=== PATIENT | male | born 1935 | race Caucasian/White ===

== ENCOUNTER → 2016-11-05 | Day surgery (SDC) | payer OTHER ==
[2016-10-10 10:24] VITALS: Ht 167.6 cm; Wt 100.0 kg
[~2016-11-05] VITALS: Ht 167.6 cm; Wt 100.0 kg
[~2016-11-05] MED LIST: 500ML BSS 0.3ML EPI 1:1000PF IRRIG ONE; ACETAMINOPHEN 325 MG TAB PO PRN; AMVISC PLUS 0.8ML SYRINGE INT OCU ONE; ASCO10003 PO; ASPCH81X PO; ATROPINE SULFATE 0.1 MG/ML 5ML SYR IV PRN; B-COTAB18 PO; BSS FLUSH ONE; CALC500T68 PO; CETI10TA84 PO; EpHEDrine SULFATE INJ 50 MG/ML AMP IV PRN; EpINEphrine INJ 1MG/ML AMP 1 MG/ML AMP ONE; FENO145T26 PO; FINA5TAB PO; FURO-85 PO; INSDGIPEN SC; LACTATED RINGER'S 1000ML 1,000 ML IV SCH; LIDOCAINE 3.5% OPH GEL PER APPLICATION CHARGE ONE; LIDOCAINE HCL 1% MPF 2 ML VIAL ONE; LINA1TAB PO; LISI2.5T5 PO; MCR5 PO; METO25TA3 PO; MIDAZOLAM HCL 1 MG/ML 2ML VIAL ONE; MONT1TAB3 PO; MULT-190 PO; MULT-845 PO; OCUCOAT 1 ML SOLN IO ONE; OMEP40CA41 PO; POVIDONE-IODINE OP SOLN 30 ML BTL ONE; PROPARACAINE 0.5% OP SOLN PER DROP CHARGE OPL SCH; SERT50TA PO; SIMV20TA2 PO; TAMS0.4C38 PO; TOBRAMYCIN/DEXAMETHASONE OPH OINT PER APPLN CHARGE ONE; WARF5TAB7 PO; WARF7.5T4 PO
[2016-11-05] MEDS: PHENYLEPHRINE HCL 2.5% OP SOLN PER DROP CHARGE OPL SCH ×2 (06:56→07:02)
[2016-11-05] MEDS: TROPICAMIDE 1% OP SOLN PER DROP CHARGE OPL SCH ×2 (06:57→07:03)
[2016-11-05] MEDS: CYCLOPENTOLATE HCL 1% OP SOLN PER DROP CHARGE OPL SCH ×2 (06:58→07:03)
[2016-11-05] MEDS: KETOROLAC 0.5% OP SOLN PER DROP CHARGE OPL SCH ×2 (06:59→07:04)
[2016-11-05] MEDS: GATIFLOXACIN OP SOLN PER DROP CHARGE OPL SCH ×2 (07:00→07:10)
--- NOTE | 2016-11-05 07:29 | History & Physical Bridge - [place] ---
H&P Re-Evaluation Bridge Note: I have examined the patient, reviewed the History & Physical and in the interval since the performance of the History & Physical I have noted the following changes of clinical significance: No changes noted
--- NOTE | 2016-11-05 08:14 | Discharge Instructions-SurgCtr ---
Discharge Instructions Date of Service November 05, 2016. Visit Reason for Visit: Cataract Left Eye Discharge Discharge Diagnosis / Problem: cataract Discharge Goals Goal(s): Improve function Activity Recommendations Activity Limitations: per Instructions/Follow-up section Anesthesia . Post Anesthesia Instructions: If you have had General Anesthesia or IV Sedation: * Do not drive today. * Resume driving when surgeon permits. * Do not make important decisions or sign legal documents today. * Call surgeon for: 1. Temperature elevations greater than 101 degrees F. 2. Uncontrollable pain. 3. Excessive bleeding. 4. Persistent nausea and vomiting. 5. Medication intolerance (nausea, vomiting or rash). * For nausea and vomiting use only clear liquids such as: tea, soda, bouillon until nausea subsides, then gradually increase diet as tolerated. * If you have any concerns or questions, call your surgeon's office. If physician is unavailable and it is an emergency, call 911 or go to the nearest emergency room. . Instructions / Follow-Up Instructions / Follow-Up ACTIVITY RECOMMENDATIONS: * No strenuous lifting, jogging or running for 4 days * No swimming or yard work for 1 week. * Limited bending is permitted, such as putting on shoes. RETURN TO SCHOOL/WORK: No work until seen by physician in office. MEDICATIONS: Resume previous medications unless instructed otherwise by your surgeon. This includes eye drops for glaucoma. Zymaxid/Gatifloxacin (muñoz cap) - one drop every 2 hours until bedtime Nevanac/Ilevro/Prolensa/Ketorolac (holguin cap) - one drop every 4 hours until bedtime Prednisolone (white/pink cap, SHAKE WELL) - one drop every 2 hours until bedtime Starting tomorrow - all 3 drops every 4 hours until seen in the office Optive drops - as needed for discomfort SPECIAL CARE INSTRUCTIONS: * Wear eyeshield when sleeping, for four nights. * You may wear your own glasses or sunglasses while awake. * You may read or watch TV * You may shower and wash your face, but be gentle around the eye and pat dry. * Blurry vision and mild irritation are normal. * Call office if pain is more severe or vision becomes dark at . FOLLOW UP VISIT: Follow-up with Dr Bourgeois tomorrow. Diet Recommendations Home Diet: resume previous diet Procedures Procedures Performed: Left Eye Cataract Phacoemulsification With Intraocular Lens Implant Pending Studies Studies pending at discharge: no Medical Emergencies . Who to Call and When: Medical Emergencies: If at any time you feel your situation is an emergency, please call 911 immediately. . Non-Emergent Contact Non-Emergency issues call your: Tetryl Nitrator Operator . . "Provider Documentation" section prepared by Shantanu Bourgeois. .
--- NOTE | 2016-11-05 08:15 | [facility] Operative Report ---
Operative Report Date of Service November 05, 2016. Operative Report 1. PREOPERATIVE DIAGNOSIS: Cataract of the left eye. 2. POSTOPERATIVE DIAGNOSIS: Same. 3. PROCEDURE: Phacoemulsification with intraocular lens implantation of the left eye. SURGEON: Dr. Shantanu Bourgeois. ANESTHESIA: Topical Lidocaine gel, 1% Non- Preserved intracameral Lidocaine, and monitored intravenous sedation. INDICATIONS FOR THE PROCEDURE: The patient is a 81 - year-old male with a history of cataract of the left eye causing significant visual impairment. The details of the proposed procedure were explained to the patient who asked appropriate questions and following discussion of all risks, benefits and alternatives agreed to have the procedure done. 4. OPERATION AND FINDINGS: DESCRIPTION OF PROCEDURE: After informed consent was obtained, the patient was brought to the Operating Room at the [facility]. The patient was placed in a supine position and then the left eye was prepped and draped in the usual sterile fashion for intraocular surgery. A drop of topical Lidocaine gel was placed in the operative eye. A wire lid speculum was then placed in the fornices. A corneal paracentesis was then created temporally. The Non-Preserved Lidocaine was then instilled into the anterior chamber. The anterior chamber was then pressurized with viscoelastic. A 2.0 mm clear corneal incision was then created temporally. A cystotome was inserted into the anterior chamber and used to create a tear in the anterior lens capsule. This capsular tear was then used to create a small flap and the flap was dragged in a counterclockwise direction in order to create a continuous curvilinear capsulorrhexis. Hydrodissection was accomplished with balanced salt solution. Phacoemulsification of the lens nucleus was then performed in a standard [id number]-ush-[id number] technique. The phaco time was 29 seconds with an average power of 10 %. The remaining cortical material was removed using irrigation aspiration. The capsular bag was then filled with viscoelastic. A Bausch & Lomb MI60L +22.0 diopters lens was then loaded into the injector and injected into the capsular bag. The remaining viscoelastic was removed with the irrigation aspiration handpiece. The wound was hydrated and then checked and found to be watertight. The intraocular pressure was checked and found to be adequate. The wire lid speculum was removed and the patient's face was cleaned and dried. TobraDex ointment was placed in the inferior fornix. The patient was discharged to the Recovery Room having tolerated the procedure well. There were no complications. The patient will be seen tomorrow in the office for follow-up. I attest to the content of the Intraoperative Record and any orders documented therein. Any exceptions are noted below.
[2016-11-05 08:16] VITALS: TEMP 37.1
--- NOTE | 2016-11-05 08:27 | Anesthesia Progress Nt - [facility] ---
Anesthesia Post Op Note Date & Time November 05, 2016 at 08:27 Vital Signs Pain Intensity: 0 Vital Signs Past 12 Hours Date Time Temp Pulse Resp B/P Pulse Ox O2 Delivery O2 Flow Rate FiO2 11/05/16 06:47 36.4 61 16 110/69 95 Room Air Notes Mental Status: alert / awake / arousable, participated in evaluation Pt Amnestic to Procedure: Yes Nausea / Vomiting: adequately controlled Pain: adequately controlled Airway Patency, RR, SpO2: stable & adequate BP & HR: stable & adequate Hydration State: stable & adequate Anesthetic Complications: no major complications apparent
[2016-11-05 08:32] VITALS: BP 125/79; PULSE 63; O2SAT 94
== END | disposition home or self-care (01) ==
LOC: X.SURG 06:26
PROVIDERS: ATTEND Ophthalmology
DX: H26.9 Unspecified cataract (principal); J44.9 Chronic obstructive pulmonary disease, unspecified; E11.9 Type 2 diabetes mellitus without complications; C91.11 Chronic lymphocytic leukemia of B-cell type in remission; I48.0 Paroxysmal atrial fibrillation; N18.3 Chronic kidney disease, stage 3 (moderate); I12.9 Hypertensive chronic kidney disease with stage 1 through stage 4 chronic kidney disease, or unspecified chronic kidney disease; I50.22 Chronic systolic (congestive) heart failure; N40.0 Benign prostatic hyperplasia without lower urinary tract symptoms; F32.9 Major depressive disorder, single episode, unspecified; E78.2 Mixed hyperlipidemia; Z85.828 Personal history of other malignant neoplasm of skin; Z79.82 Long term (current) use of aspirin; Z79.01 Long term (current) use of anticoagulants

== ENCOUNTER → 2016-11-26 | Day surgery (SDC) | payer OTHER ==
[2016-11-08 08:44] VITALS: Ht 167.6 cm; Wt 100.0 kg
[~2016-11-26] VITALS: Ht 167.6 cm; Wt 100.0 kg
[~2016-11-26] MED LIST changes: +FENTANYL CITRATE INJ 50 MCG/1 ML 2 ML VIAL IV PRN; -LACTATED RINGER'S 1000ML 1,000 ML IV SCH; +LACTATED RINGER'S 1000ML 500 ML IV SCH; +MIX: 4ML BSS 1ML EPI 1:1000 PF INSTIL ONE; -PROPARACAINE 0.5% OP SOLN PER DROP CHARGE OPL SCH; +PROPARACAINE 0.5% OP SOLN PER DROP CHARGE OPR SCH
[2016-11-26] MEDS: PHENYLEPHRINE HCL 2.5% OP SOLN PER DROP CHARGE OPR SCH ×2 (07:53→08:00)
[2016-11-26] MEDS: TROPICAMIDE 1% OP SOLN PER DROP CHARGE OPR SCH ×2 (07:54→08:01)
[2016-11-26] MEDS: CYCLOPENTOLATE HCL 1% OP SOLN PER DROP CHARGE OPR SCH ×2 (07:55→08:03)
[2016-11-26] MEDS: KETOROLAC 0.5% OP SOLN PER DROP CHARGE OPR SCH ×2 (07:56→08:04)
[2016-11-26] MEDS: GATIFLOXACIN OP SOLN PER DROP CHARGE OPR SCH ×2 (07:57→08:08)
--- NOTE | 2016-11-26 08:56 | Discharge Instructions-SurgCtr ---
Discharge Instructions Date of Service November 26, 2016. Visit Reason for Visit: Cataract Right Eye Discharge Discharge Diagnosis / Problem: cataract Discharge Goals Goal(s): Improve function Activity Recommendations Activity Limitations: per Instructions/Follow-up section Anesthesia . Post Anesthesia Instructions: If you have had General Anesthesia or IV Sedation: * Do not drive today. * Resume driving when surgeon permits. * Do not make important decisions or sign legal documents today. * Call surgeon for: 1. Temperature elevations greater than 101 degrees F. 2. Uncontrollable pain. 3. Excessive bleeding. 4. Persistent nausea and vomiting. 5. Medication intolerance (nausea, vomiting or rash). * For nausea and vomiting use only clear liquids such as: tea, soda, bouillon until nausea subsides, then gradually increase diet as tolerated. * If you have any concerns or questions, call your surgeon's office. If physician is unavailable and it is an emergency, call 911 or go to the nearest emergency room. . Instructions / Follow-Up Instructions / Follow-Up ACTIVITY RECOMMENDATIONS: * No strenuous lifting, jogging or running for 4 days * No swimming or yard work for 1 week. * Limited bending is permitted, such as putting on shoes. RETURN TO SCHOOL/WORK: No work until seen by physician in office. MEDICATIONS: Resume previous medications unless instructed otherwise by your surgeon. This includes eye drops for glaucoma. Zymaxid/Gatifloxacin (muñoz cap) - one drop every 2 hours until bedtime Nevanac/Ilevro/Prolensa/Ketorolac (holguin cap) - one drop every 4 hours until bedtime Prednisolone (white/pink cap, SHAKE WELL) - one drop every 2 hours until bedtime Starting tomorrow - all 3 drops every 4 hours until seen in the office Optive drops - as needed for discomfort SPECIAL CARE INSTRUCTIONS: * Wear eyeshield when sleeping, for four nights. * You may wear your own glasses or sunglasses while awake. * You may read or watch TV * You may shower and wash your face, but be gentle around the eye and pat dry. * Blurry vision and mild irritation are normal. * Call office if pain is more severe or vision becomes dark at . FOLLOW UP VISIT: Follow-up with Dr Bourgeois tomorrow. Diet Recommendations Home Diet: resume previous diet Procedures Procedures Performed: Right Cataract Phacoemulsification With Intraocular Lens Implant Pending Studies Studies pending at discharge: no Medical Emergencies . Who to Call and When: Medical Emergencies: If at any time you feel your situation is an emergency, please call 911 immediately. . Non-Emergent Contact Non-Emergency issues call your: Industrial Recruiter . . "Provider Documentation" section prepared by Shantanu Bourgeois. .
[2016-11-26 08:57] VITALS: TEMP 36.7
--- NOTE | 2016-11-26 08:57 | [facility] Operative Report ---
Operative Report Date of Service November 26, 2016. Operative Report 1. PREOPERATIVE DIAGNOSIS: Cataract of the right eye. 2. POSTOPERATIVE DIAGNOSIS: Same. 3. PROCEDURE: Phacoemulsification with intraocular lens implantation of the right eye. SURGEON: Dr. Shantanu Bourgeois. ANESTHESIA: Topical Lidocaine gel, 1% Non- Preserved intracameral Lidocaine, and monitored intravenous sedation. INDICATIONS FOR THE PROCEDURE: The patient is a 81 - year-old male with a history of cataract of the right eye causing significant visual impairment. The details of the proposed procedure were explained to the patient who asked appropriate questions and following discussion of all risks, benefits and alternatives agreed to have the procedure done. The patient had a know history of taking of flomax. 4. OPERATION AND FINDINGS: DESCRIPTION OF PROCEDURE: After informed consent was obtained, the patient was brought to the Operating Room at the [facility]. The patient was placed in a supine position and then the right eye was prepped and draped in the usual sterile fashion for intraocular surgery. A drop of topical Lidocaine gel was placed in the operative eye. A wire lid speculum was then placed in the fornices. A corneal paracentesis was then created temporally. The Non-Preserved Lidocaine was then instilled into the anterior chamber. Epinephrine with a 1:4 dilution was instilled into the anterior chamber. The anterior chamber was then pressurized with viscoelastic. A 2.0 mm clear corneal incision was then created temporally. A cystotome was inserted into the anterior chamber and used to create a tear in the anterior lens capsule. This capsular tear was then used to create a small flap and the flap was dragged in a counterclockwise direction in order to create a continuous curvilinear capsulorrhexis. Hydrodissection was accomplished with balanced salt solution. Phacoemulsification of the lens nucleus was then performed in a standard otbvza-aaw-wnsaprc technique. The phaco time was 31 seconds with an average power of 8 %. The remaining cortical material was removed using irrigation aspiration. The capsular bag was then filled with viscoelastic. A Bausch & Lomb MI60L +21.0 diopters lens was then loaded into the injector and injected into the capsular bag. The remaining viscoelastic was removed with the irrigation aspiration handpiece. The wound was hydrated and then checked and found to be watertight. The intraocular pressure was checked and found to be adequate. The wire lid speculum was removed and the patient's face was cleaned and dried. TobraDex ointment was placed in the inferior fornix. The patient was discharged to the Recovery Room having tolerated the procedure well. There were no complications. The patient will be seen tomorrow in the office for follow-up. I attest to the content of the Intraoperative Record and any orders documented therein. Any exceptions are noted below.
[2016-11-26 09:23] VITALS: BP 160/77; PULSE 62; O2SAT 95
--- NOTE | 2016-11-26 09:45 | Anesthesia Progress Nt - [facility] ---
Anesthesia Post Op Note Date & Time November 26, 2016 at 09:46 Vital Signs Pain Intensity: 0 Vital Signs Past 12 Hours Date Time Temp Pulse Resp B/P Pulse Ox O2 Delivery O2 Flow Rate FiO2 11/26/16 09:23 62 18 160/77 95 Room Air 11/26/16 08:57 36.7 60 18 146/77 95 Room Air 11/26/16 07:45 36.9 59 16 125/75 95 Room Air Notes Mental Status: alert / awake / arousable, participated in evaluation Pt Amnestic to Procedure: Yes Nausea / Vomiting: adequately controlled Pain: adequately controlled Airway Patency, RR, SpO2: stable & adequate BP & HR: stable & adequate Hydration State: stable & adequate Anesthetic Complications: no major complications apparent
== END | disposition home or self-care (01) ==
LOC: X.SURG 07:02
PROVIDERS: ATTEND Ophthalmology
DX: H26.9 Unspecified cataract (principal); Z88.2 Allergy status to sulfonamides; I12.9 Hypertensive chronic kidney disease with stage 1 through stage 4 chronic kidney disease, or unspecified chronic kidney disease; I48.91 Unspecified atrial fibrillation; I25.10 Atherosclerotic heart disease of native coronary artery without angina pectoris; E11.36 Type 2 diabetes mellitus with diabetic cataract; E11.22 Type 2 diabetes mellitus with diabetic chronic kidney disease; N18.3 Chronic kidney disease, stage 3 (moderate); E78.2 Mixed hyperlipidemia; F32.9 Major depressive disorder, single episode, unspecified; N40.0 Benign prostatic hyperplasia without lower urinary tract symptoms; I50.22 Chronic systolic (congestive) heart failure; Z79.4 Long term (current) use of insulin; Z79.01 Long term (current) use of anticoagulants; Z79.82 Long term (current) use of aspirin; Z79.899 Other long term (current) drug therapy; Z82.49 Family history of ischemic heart disease and other diseases of the circulatory system

== ENCOUNTER 2019-09-02 09:13 | Observation (INO) ==
[2019-09-02] MEDS ORDERED: LIDOCAINE HCL 1% 20 ML VIAL ONE (11:32)
[2019-09-02] MEDS ORDERED: BUPIVACAINE 0.5 % 5 MG/1 ML PF 10ML VIAL ONE (11:33)
[2019-09-02] MEDS ORDERED: BACITRACIN INJ 50,000 UNIT VIAL ONE (11:33)
--- NOTE | 2019-09-02 13:16 | Pre Anesthesia Assessment ---
Date of Service September 02, 2019 Pre Sedation Assessment Vital Signs Pulse Resp BP Pulse Ox 09/02/19 10:10 66 18 97/52 L 97 Cardiovascular + regular rate Respiratory + respiratory effort normal Pre-Sedation Airway Assessment Smoking Status: Never smoker Hx Sleep Apnea: No Hx Difficult Intubation: No Short, Thick Neck: No Oral Cavity: + WNL Mallampati Class: III ASA: ASA3 NPO Status Date of Last Intake of Fluids: 09/02/19 Time of Last Intake of Fluids: 07:00 Date of Last Intake of Solid Food: 09/01/19 Time of Last Intake of Solid Foods: 20:00 Procedure Planning Contraindications for Sedation: none Current Medications Reviewed: Yes Notes The planned sedation has been discussed with the patient. Informed Consent was obtained. I have identified the patient, determined the appropriateness of sedation and have assessed the patient immediately prior to the procedure. All medicine(s) and interventions are by my order.
--- NOTE | 2019-09-02 13:16 | History & Physical Bridge Note ---
Date of Service September 02, 2019 History & Physical Bridge Note I have examined the patient, reviewed the History & Physical and in the interval since the performance of the History & Physical I have noted the following changes of clinical significance: no changes noted
[2019-09-02] MEDS ORDERED: CEFAZOLIN 250 MG/ML 1 GM VIAL ONE (13:18)
[2019-09-02] MEDS ORDERED: MIDAZOLAM HCL 5 MG/ML 1 ML VIAL ONE (13:18)
[2019-09-02] MEDS ORDERED: fentaNYL citrate 100 MCG/2 ML VIAL ONE (13:18)
[2019-09-02] MEDS ORDERED: ACETAMINOPHEN 325 MG TAB PO PRN (14:44)
[2019-09-02] MEDS ORDERED: OXYCODONE HCL IR 5 MG TAB (IMMEDIATE RELEASE) PO PRN (14:44)
--- NOTE | 2019-09-02 14:44 | Electrophysiology Report ---
Date of Service September 02, 2019 Electrophysiology Procedure Electrophysiology Procedure Report Procedure performed: Implantation of new pulse generator for biventricular ICD, right ventricular lead revision, limited left axillary venography Staff pelts skinner: Trell Panchal MD Indication: The patient is an 83-year-old gentleman with a history of coronary artery disease and prior implantation of biventricular ICD. He was noted on routine evaluation to have a right ventricular lead malfunction. The pacing portion of the lead was inadequate. He also had very limited longevity left on the pulse generator. Therefore he felt be good candidate for pulse generator change and right ventricular lead revision today. Procedure in detail: The patient was informed of the risks benefits and alternatives to the intended procedure and she wished to proceed. The was taken to the electrophysiology suite in a fasting state. A preoperative antibiotic had been administered. The patient was monitored electrocardiographically throughout today's procedure and conscious sedation was administered per protocol. The left upper pectoral area is prepped and draped in usual sterile fashion. Limited left axillary venography was then performed this area was anesthetized using subcutaneous administration of a xylocaine solution. An incision was made at this site and carried down to the previously implanted pulse generator using sharp dissection. Electrocautery was also employed for dissection as well as for hemostasis. The previously implanted device and leads were removed from the pocket. A partial capsulotomy was performed. The left axillary vein was subsequently accessed using modified Seldinger technique and sheath was placed over guidewire at this site. This sheath was used to felt a passage of the new right ventricular ICD lead to the right ventricular apex under fluoroscopic guidance. Adequate sensing and threshold parameters were obtained prior to active fixation of this lead to the endocardial surface. The proximal portion of lead was then sutured to the prepectoralis fascia of the nonabsorbable suture.. The device pocket was irrigated with antibiotic solution. The leads were then attached to the device. The abandoned right ventricular leads and distal coil were capped. An antibiotic impregnated envelope was placed around the device in the pocket. The device and leads were then placed in the pocket and pocket was closed in 3 layers of absorbable suture. Steri-Strips and sterile dressing were applied. The device was tested noninvasively prior to conclusion the procedure. The patient tolerated procedure well there no immediate complications. Equipment used: New pulse generator: [email or web address] Model number: DT MA 1QQ serial number [id number] Right atrial lead: [employer]. Model number: 1688 TC serial number [id number] Right ventricular lead: [email or web address] Model number: 6935M serial number [id number] Retained and capped right ventricular lead: [employer]. Mode l #7122 serial number [id number] Retained left ventricular lead: [employer]. Model number 1458Q serial number [id number] Explanted pulse generator: [employer]. Model number CD 3265 serial #[id number] Measured data: Right atrial lead: P waves measure 1.4 mV. Pacing threshold 0.75 V at 0.4 ms with pacing impedance of 399 ohms Right ventricular lead: R waves measured 10.1 mV. Pacing threshold 0.5 V at 0.4 ms with a pacing impedance of 456 ohms Impression: Successful implantation of new pulse generator for biventricular ICD. Successful right ventricular lead revision
[2019-09-02] MEDS ORDERED: ALBUTEROL HFA 8 GM INHALER INH PRN (16:32)
[2019-09-02] MEDS ORDERED: ZOLPIDEM TARTRATE 10 MG TAB PO PRN (16:38)
[2019-09-02] MEDS ORDERED: GLUCOSE 40% GEL 15 GM TUBE PO PRN (17:00)
[2019-09-02] MEDS ORDERED: DEXTROSE 50% 50 ML SYRINGE IV PRN (17:00)
[2019-09-02] MEDS ORDERED: CARBOHYDRATES FOR HYPOGLYCEMIA PO PRN (17:00)
[2019-09-02] MEDS ORDERED: GLUCAGON FOR INJ 1 MG VIAL IM PRN (17:00)
[2019-09-02] MEDS ORDERED: GLUCOSE 10 TABS/TUBE PO PRN (17:00)
[2019-09-02] MEDS: INSULIN ASPART 100 UNITS/ML 3 ML PEN SC SCH ×2 (17:40→20:52)
[2019-09-02] MEDS ORDERED: CEFAZOLIN 1000MG 1,000 MG/7.5 ML SYR IV SCH (20:00)
[2019-09-02] MEDS: CEFAZOLIN 2000MG 2,000 MG/15 ML SYR IV SCH (20:15)
[2019-09-02] MEDS: INSULIN GLARGINE SOLOSTAR 100 UNITS/ML 3 ML PEN SC SCH (20:52)
[2019-09-02] MEDS ORDERED: SIMVASTATIN 20 MG TAB PO SCH (21:00)
[2019-09-02] MEDS ORDERED: MONTELUKAST SODIUM 10 MG TABLET PO SCH (21:00)
[2019-09-03] MEDS: CEFAZOLIN 2000MG 2,000 MG/15 ML SYR IV SCH ×2 (04:20→11:12)
--- NOTE | 2019-09-03 06:46 | XRay Report ---
XR chest 2V PA/lateral CLINICAL HISTORY: Pacemaker insertion. COMPARISON STUDY: No previous studies for comparison. FINDINGS: A left subclavian biventricular pacer/AICD is in place. A lead projects over the right atri al appendage. Leads project over the right ventricle and a third lead likely extends through the kristina nary sinus as expected. There is mild cardiomegaly without evidence for pulmonary edema. There is a t race right pleural effusion with right basilar atelectasis. There is no pneumothorax. IMPRESSION: 1. No pneumothorax following placement of a left subclavian biventricular pacer/AICD. 2. Trace right pleural effusion. No radiographic evidence of pulmonary edema. ACT 112: Negative or not required by law. Electronically signed by: Enrique Rdz M.D. 09/03/2019 6:44 AM
[2019-09-03] MEDS: INSULIN ASPART 100 UNITS/ML 3 ML PEN SC SCH ×2 (07:56→11:51)
[2019-09-03] MEDS: INSULIN GLARGINE SOLOSTAR 100 UNITS/ML 3 ML PEN SC SCH (07:57)
[2019-09-03] MEDS ORDERED: TAMSULOSIN HCL 0.4 MG CAP PO SCH (09:00)
[2019-09-03] MEDS ORDERED: FLUTICASONE/VILANTEROL 100/25MCG 14 PUFFS/INHALER INH SCH (09:00)
[2019-09-03] MEDS ORDERED: LINAGLIPTIN 5 MG PO SCH (09:00)
[2019-09-03] MEDS ORDERED: ASPIRIN 325 MG ECTAB PO SCH (09:00)
[2019-09-03] MEDS ORDERED: TORSEMIDE 10 MG TAB PO SCH (09:00)
[2019-09-03] MEDS ORDERED: METOPROLOL SUCC 25MG EXT REL TAB PO SCH (09:00)
[2019-09-03] MEDS ORDERED: AMIODARONE 200 MG TAB PO SCH (09:00)
[2019-09-03] MEDS ORDERED: FENOFIBRATE NANOCRYSTALLIZED 145 MG TABLET PO SCH (09:00)
[2019-09-03] MEDS ORDERED: ISOSORBIDE MONO EXTENDED REL 30 MG TABCR PO SCH (09:00)
[2019-09-03] MEDS ORDERED: CETIRIZINE HCL 10 MG TABLET PO SCH (09:00)
[2019-09-03] MEDS ORDERED: SERTRALINE HCL 100 MG TABLET PO SCH (09:00)
[2019-09-03] MEDS ORDERED: PANTOprazole 40 MG TAB PO SCH (09:00)
[2019-09-03 11:54] LABS: BUN Creatinine Ratio 15.8 (10-20); Calcium 8.7 mg/dl (8.5-10.1); Creatinine Clr Calc Pharmacy 35.5 ml/min; Est GFR (African American) 38.7; Est GFR (Non-African American) 33.4; Potassium 4.3 mmol/L (3.5-5.1)
--- NOTE | 2019-09-09 16:22 | Discharge Summary ---
Date of Service September 04, 2019 Admission HPI Per Admitting Provider Patient is 84-year-old gentleman with a prior history of biventricular ICD implant. He has no routine evaluation to have failure of the right ventricular lead. Principal Diagnosis q Discharge Exam At the time of discharge the device implant site appear to be healing well. No significant hematoma or drainage. Discharge Data Allergies Allergy/AdvReac Type Severity Reaction Status Date / Time Sulfa (Sulfonamide Allergy Mild RASH Verified 09/07/19 10:00 Antibiotics) Procedures Performed Operation Date: 09/02/19 11:00 Actual Procedures p ICD Gen Change Multiple - Balta Panchal MD s Insertion Single Lead Only - Balta Panchal MD Ordered Studies 09/02/19 06:42 CL Cath Imgs for PACS use only Stat Hospital Course (1) S/P ICD (internal cardiac defibrillator) procedure: With admission the patient underwent right ventricular lead revision and pulse generator change for biventricular ICD. His [employer] device was switched for a [employer] device. The procedure was uncomplicated. On the day of discharge patient was feeling well. No evident complication. Chest x-ray appeared normal. Device interrogation revealed good function of all leads. Total Time Total Time Spent Total Time Spent (In Minutes): 10 Total Time Includes: Examination of the Patient and Medication Reconciliation Discharge Plan Discharge Items Patient Disposition: Home - Self-Care Reason For Visit: Atrial Fibrillation Discharge Diagnosis: Cardiomyopathy Activity: Per Instructions section Activity Comment: No lifting left arm above shoulder or behind neck for 6 weeks Lifting: No more than 10 pounds Bathing: Keep incision dry Bathing Comment: Keep wound dry Steri-Strips intact until follow-up next week Driving/Machine Use: Resume 1 day after discharge Non-emergency contact: School Bus Driver/Mechanic Call non-emergency contact if: you have any medication questions, your pain is worsening, you have a fever and your wound has increased redness Follow-up/Referrals: Roque Lowery PA-C [Primary Care Provider] - (you will expect to receive a phone call from the PCP's nurse with an appointment schedule ) Diet: Carb Consistent or DM2 and Heart Healthy Addtl Attending Provider Instructions: none Stand-Alone Forms: [employer], Smoking Cessation Medications and DC Order Prescriptions: Continued albuterol sulfate 90 mcg/actuation HFA aerosol inhaler 2 puffs INH Q6H PRN (Reason: Respiratory Distress) RF: 0 antiox.mv [id number] mg capsule 1 cap PO DAILY RF: 0 ascorbic acid (vitamin C) 1,000 mg tablet 1 gm PO BID RF: 0 aspirin [Adult Low Dose Aspirin] 81 mg tablet,delayed release (DR/EC) 81 mg PO DAILY RF: 0 All Day Allergy (cetirizine) 10 mg capsule 10 mg PO DAILY RF: 0 fenofibrate nanocrystallized [Tricor] 145 mg tablet 145 mg PO DAILY RF: 0 finasteride [Proscar] 5 mg tablet 5 mg PO DAILY RF: 0 fluticasone propion-salmeterol [Advair Diskus] 100-50 mcg/dose blister with device 2 puffs INH BID RF: 0 Tradjenta 5 mg tablet 5 mg PO DAILY RF: 0 montelukast 10 mg tablet 10 mg PO DAILY RF: 0 nitroglycerin 0.4 mg tablet, sublingual 0.4 mg SL Q5M PRN (Reason: Chest Pain) RF: 0 omeprazole 40 mg capsule,delayed release(DR/EC) 40 mg PO DAILY RF: 0 simvastatin 20 mg tablet 20 mg PO DAILY RF: 0 tamsulosin 0.4 mg capsule 0.4 mg PO DAILY RF: 0 sertraline 50 mg tablet 100 mg PO DAILY RF: 0 amiodarone 200 mg tablet 200 mg PO DAILY RF: 0 insulin glargine See Rx Instructions .ROUTE .COMPLEX RF: 0 lisinopril 2.5 mg tablet 5 mg PO DAILY RF: 0 cyanocobalamin (vitamin B-12) 1,000 mcg capsule 1,000 mcg PO DAILY RF: 0 zolpidem 6.25 mg tablet,ext release multiphase 6.25 mg PO PM RF: 0 isosorbide mononitrate 30 mg tablet extended release 24 hr 30 mg PO DAILY Qty: 30 RF: 5 (DME) Portable Oxygen Misc See Rx Instructions .ROUTE .MEDSUPPLY Qty: 1 RF: 0 torsemide 20 mg tablet 20 mg PO DAILY RF: 0 No Action metoprolol succinate [Toprol XL] 25 mg tablet extended release 24 hr 50 mg PO DAILY RF: 0 Discharge Orders: Discharge Order (Routine); Ordered 09/03/19 Ordered By: Balta Dawson/Other Patient Handouts: Pacemaker Biventricular and ICD, Pacemaker Implantation Dc Admission Data Admit Date/Time: 09/02/19 14:15 Attending Provider: Balta Panchal Admit Provider: Balta Panchal Primary Care Provider: Roque Lowery Other Interventions: Discharge Summary Assessment (RN) Last Done: 09/03/19 09:44 DC Date/Time DO NOT enter until pt leaves facility: 09/03/19 12:53 Coding Level of Care Code D/C Day Management <30 mins Diagnoses S/P ICD (internal cardiac defibrillator) procedure Z95.810
== END 2019-09-03 12:53 | disposition home or self-care (01) ==
LOC: 2E 09:13 → EP 09:13